=== PATIENT | female | born 1980 | race Caucasian/White ===

== ENCOUNTER 2016-03-24 06:16 | Inpatient (IN) | payer BC, OTHER ==
[2016-03-24] VITALS (16 sets, daily range): BP systolic 83–123; RESP 12–20; TEMP 97.3–97.8; Ht 165.1 cm; Wt 81.6 kg
[~2016-03-24] VITALS: Ht 165.1 cm; Wt 81.6 kg
[2016-03-24] MEDS ORDERED: LACT RINGERS 1,000 ML IV SCH (06:20)
[2016-03-24] MEDS ORDERED: FAMOTIDINE 20 MG INJ IV ONE (06:20)
[2016-03-24] MEDS ORDERED: METOCLOPRAMIDE 10 MG/2 ML VIAL IV PUSH ONE (06:20)
[2016-03-24] MEDS ORDERED: CEFAZOLIN (LD/OB) 100 ML IV ONE (06:20)
[2016-03-24] MEDS ORDERED: LIDOCAINE 1% BUFFERED 1 ML SYR INTRADERM PRN (06:20)
[2016-03-24] MEDS ORDERED: PHENYLEPHRINE 10 MG/ML VIAL IV ONE (07:28)
[2016-03-24] MEDS ORDERED: FENTANYL 100 MCG/2 ML AMP IV ONE (07:28)
[2016-03-24] MEDS ORDERED: MORPHINE PF 0.5 MG/ML 10 ML IV ONE (07:28)
[2016-03-24] MEDS ORDERED: OXYTOCIN 10 UNITS/ML VIAL IV ONE (07:28)
[2016-03-24] MEDS ORDERED: MIDAZOLAM 2 MG/2 ML INJ IV ONE (07:28)
[2016-03-24] MEDS ORDERED: OXYCODONE 5 MG TAB PO PRN (07:30)
[2016-03-24] MEDS ORDERED: ONDANSETRON 4 MG VIAL IV PRN ×3 (07:30→08:15)
[2016-03-24] MEDS ORDERED: BUTORPHANOL 1 MG/ML VIAL IV PRN (07:30)
[2016-03-24] MEDS ORDERED: DILAUDID 1 MG/ML AMP IV PRN (07:30)
[2016-03-24] MEDS ORDERED: NALOXONE 0.4 MG/ML AMP IV PRN (07:30)
[2016-03-24] MEDS ORDERED: MORPHINE 4 MG/ML SYR IV PRN ×2 (07:30)
[2016-03-24] MEDS ORDERED: PROMETHAZINE 25 MG/ML VIAL IV PRN (07:30)
[2016-03-24] MEDS ORDERED: DIPHENHYDRAMINE 50 MG/ML VIAL IV PRN (07:30)
[2016-03-24] MEDS ORDERED: MORPHINE 2 MG/ML SYR IV PRN ×2 (07:30)
[2016-03-24] MEDS ORDERED: SALINE FLUSH 10 ML FLUSH PRN ×2 (07:30→08:15)
[2016-03-24] MEDS ORDERED: MEPERIDINE 25 MG/ML IV PRN (07:30)
[2016-03-24] MEDS ORDERED: SODIUM CHLORIDE 0.9% FLUSH BAG 500 ML IV PRN (08:15)
[2016-03-24] MEDS ORDERED: TDaP 0.5 ML VIAL IM.VACC ONE (08:15)
[2016-03-24] MEDS ORDERED: MAG HYDROX 30 ML UDC PO PRN (08:15)
[2016-03-24] MEDS ORDERED: MEASLES,MUMPS,RUBELLA VAC SUBQ.VACC ONE (08:15)
[2016-03-24] MEDS ORDERED: OXYTOCIN 15 UNITS/250 ML NS 250 ML IV SCH (08:15)
[2016-03-24] MEDS ORDERED: BISACODYL 10 MG SUPP RECTAL PRN (08:15)
[2016-03-24] MEDS ORDERED: MISOPROSTOL 100 MCG TAB ONE (08:58)
[2016-03-24] MEDS: DOCUSATE SOD 100 MG CAP PO SCH ×2 (09:00→21:02)
[2016-03-24] MEDS: LACT RINGERS 1,000 ML IV SCH ×2 (09:00→11:17)
[2016-03-24] MEDS: MISOPROSTOL 200 MCG TAB PO SCH ×2 (09:01→11:57)
[2016-03-24] MEDS: KETOROLAC 30 MG/ML VIAL IV SCH ×3 (12:00→23:35)
[2016-03-24] MEDS: SALINE FLUSH 10 ML FLUSH SCH ×2 (19:21→21:02)
[2016-03-24] MEDS ORDERED: SALINE FLUSH 10 ML FLUSH SCH (20:00)
[2016-03-25 02:21] VITALS: BP_SYST 103; RESP 18; TEMP 97.9
[2016-03-25] MEDS: KETOROLAC 30 MG/ML VIAL IV SCH (05:14)
[2016-03-25 05:43] VITALS: BP_SYST 128; RESP 20; TEMP 98.3
[2016-03-25] MEDS ORDERED: SODIUM CHLORIDE 0.9% FLUSH BAG 500 ML IV SCH (06:00)
[2016-03-25] MEDS ORDERED: SALINE FLUSH 10 ML FLUSH PRN (07:30)
[2016-03-25] MEDS ORDERED: SODIUM CHLORIDE 0.9% FLUSH BAG 500 ML IV PRN (07:30)
[2016-03-25] MEDS ORDERED: SALINE FLUSH 10 ML FLUSH SCH (08:00)
[2016-03-25] MEDS: DOCUSATE SOD 100 MG CAP PO SCH ×2 (08:11→22:01)
[2016-03-25] MEDS: SERTRALINE 25 MG TAB PO SCH (09:22)
[2016-03-25 10:21] VITALS: BP_SYST 106; RESP 18; TEMP 97.8
[2016-03-25] MEDS: Ibuprofen 600 MG TAB PO SCH ×3 (12:05→23:33)
[2016-03-25 17:31] VITALS: BP_SYST 122; TEMP 98
[2016-03-26] MEDS: Ibuprofen 600 MG TAB PO SCH ×2 (06:07→11:21)
[2016-03-26 06:08] VITALS: BP_SYST 102; RESP 18; TEMP 97.9
[2016-03-26] MEDS: SERTRALINE 25 MG TAB PO SCH (09:09)
[2016-03-26] MEDS: DOCUSATE SOD 100 MG CAP PO SCH (09:10)
[2016-03-26 09:28] VITALS: BP_SYST 111; TEMP 98.1
[2016-03-26 09:29] VITALS: RESP 16
[2016-03-26] MEDS ORDERED: TDaP 0.5 ML VIAL IM.VACC ONE (10:22)
[2016-03-26 10:29] VITALS: BP_SYST 111; RESP 16; TEMP 98.1
== END 2016-03-26 12:22 | disposition home or self-care (01) | DRG 766 ==
LOC: LD 06:16 → OB 11:00
PROVIDERS: ADMIT Obstetrics & Gynecology; ATTEND Obstetrics & Gynecology
PROC: 10D00Z1 Extraction of Products of Conception, Low, Open Approach (ICD-10-PCS; principal; 2016-03-24)
PROC: 0UL70CZ Occlusion of Bilateral Fallopian Tubes with Extraluminal Device, Open Approach (ICD-10-PCS; 2016-03-24)
CPT/HCPCS: 82803; 85025; 86850; 86900; 86901; 96372